=== PATIENT | male | born 1980 | race Caucasian/White ===

== ENCOUNTER 2023-06-10 08:26 | Emergency (ER) | payer OTHER, SELFPAY ==
[2023-06-10 08:46] VITALS: BP 118/79; PULSE 88; RESP 16; TEMP 36.5; O2SAT 99
--- NOTE | 2023-06-10 09:07 | ED.URI ---
HPI - URI/Sore Throat General Chief Complaint: Upper Respiratory Infection Stated Complaint: fever,muscle aches,cough Source: patient and RN notes reviewed Mode of arrival: ambulatory Limitations: no limitations History of Present Illness HPI Narrative: 43 y/o male presented for complaint of headache, sore throat body aches, sinus pressure/congestion, cough, fever/chills. Onset 2 days. Denies sob, wheezing, n/v/d. MD elicited complaint: cough Related Data Home Medications Medication Instructions Recorded Confirmed No Home Medications 06/10/23 06/10/23 Allergies Allergy/AdvReac Type Severity Reaction Status Date / Time No Known Allergies Allergy Verified 06/10/23 08:52 Review of Systems Review of Systems: CONSTITUTIONAL: Endorses malaise, chills, sweats, fever EYES: Denies visual changes, redness, or discharge ENT: Reports rhinorrhea, congestion, sore throat CARDIOVASCULAR: Denies chest pain, palpitations, edema RESPIRATORY: Reports cough, post nasal drainage. Denies dyspnea GASTROINTESTINAL: Denies abdominal pain, nausea, vomiting, diarrhea SKIN: Denies rash or itching MUSCULOSKELETAL: Endorses myalgia NEUROLOGIC: Reports headache [facility] Past Medical History Medical History (Updated 06/10/23 @ 09:14 by Yue Arce, SCRAP BALER) No pertinent past medical history Exam Narrative: GENERAL: mildly Ill-appearing, nontoxic no acute distress. EYES: conjunctivae clear ENT: Mucous membranes moist. TM pearly evans with dull light reflex bilaterally; no tragal tenderness. Oropharynx erythematous without lesions or exudate, no drooling, no hoarseness, no trismus, uvula midline. No tripod positioning, muffled voice, soft palate or pharyngeal wall bulging NECK: Supple. No lymphadenopathy CHEST: Clear to auscultation, breath sounds equal. No respiratory distress, speaks in full sentences. HEART: Regular rate and rhythm. No murmur heard. SKIN: Warm, dry, no rash. NEURO: Alert and oriented x3. PSYCH: Normal mood and affect Course Course Emergency Course: Patient is aware of diagnosis, understands and agrees to treatment plan. Anticipatory guidance given. Patient agrees to follow-up as directed and is aware of reasons to seek care at the emergency department. Portions of this record may have been created with voice recognition software Level of Care: Express Care Visit Vital Signs Vital signs: Vital Signs Temperature 97.7 F 06/10/23 08:46 Pulse Rate 88 06/10/23 08:46 Respiratory Rate 16 06/10/23 08:46 Blood Pressure 118/79 06/10/23 08:46 Pulse Oximetry 99 06/10/23 08:46 Oxygen Delivery Room Air 06/10/23 08:46 Temperature 97.7 F 06/10/23 08:46 Pulse Rate 88 06/10/23 08:46 Respiratory Rate 16 06/10/23 08:46 Blood Pressure 118/79 06/10/23 08:46 Pulse Oximetry 99 06/10/23 08:46 Oxygen Delivery Room Air 06/10/23 08:46 reviewed MDM - URI/Sore Throat MDM Narrative Medical decision making narrative: POS covid neg flu and strep results reviewed with pt. Discussed physical exam findings. Advised supportive measures and signs/symptoms to go to the ER. Pt is appropriate for outpt treatment and f/u. Differential Diagnosis Differential diagnosis: Likely upper respiratory infection, sinusitis and viral infection Discharge Plan Discharge Clinical Impression: COVID-19 Patient Disposition: Home, Self-Care Condition: Stable Instructions: COVID-19 (Coronavirus Disease 2019) (ED) Additional Instructions: Your rapid COVID test was positive today. The following recommendations have been made by the CDC and local Health Departments, regarding COVID-19: -Those individuals with mild cases of COVID-19 can generally be discontinued from isolation 5 days AFTER the onset of symptoms AND the resolution of fever for 24hrs (without the use of fever-reducing medications)* -When you return to public, wear a mask at all times for an additional 5 days Rest, stay hyd
== END 2023-06-10 09:20 | disposition home or self-care (01) ==
PROVIDERS: Emergency Provider Nurse Practitioner Family
DX: U07.1 COVID-19 (principal)
CPT/HCPCS: 87081; 87426; 87804; 87880; 99203; C9803; G0463

== ENCOUNTER 2023-07-04 14:12 | Emergency (ER) | payer OTHER, SELFPAY ==
--- NOTE | ~2023-07-04 | XR_ITS ---
EXAMINATION: XR hand RT min 3V DATE: 07/04/2023 14:38 INDICATION: Pain at the right third metacarpophalangeal joint. By one month prior TECHNIQUE: Posteroanterior, oblique and lateral views of the right hand were obtained. COMPARISON: None. FINDINGS: Alignment is normal. No fracture. Joint spaces are normal. Soft tissues are unremarkable. No soft tis heidi gas or radiopaque foreign bodies. IMPRESSION: 1. Negative right hand radiographs. Reviewed, dictated and finalized at location A. BLE LOCATOR TEST DESK
[2023-07-04 14:29] VITALS: BP 148/91; PULSE 76; RESP 18; TEMP 36.1; O2SAT 98
--- NOTE | 2023-07-04 14:32 | ED.UPPEXIN ---
HPI - Extremity Injury (Upper) General Chief Complaint: Extremity Injury, Upper Stated Complaint: rt middle finger knuckle pain Time Seen by Provider: 07/04/23 14:30 Source: patient Mode of arrival: ambulatory Limitations: no limitations History of Present Illness HPI narrative: Timo is a 43-year-old male patient presenting to clinic today with complaints of right 3rd knuckle pain. He reports about a month ago his dog bit his hand injuring the right 3rd MCP joint. He is still having some pain within Related Data Home Medications Medication Instructions Recorded Confirmed No Home Medications 06/10/23 07/04/23 Allergies Allergy/AdvReac Type Severity Reaction Status Date / Time No Known Allergies Allergy Verified 07/04/23 14:31 Review of Systems Review of Systems: Pertinent positives per HPI. Patient denies any fever, chills, rash, headache, visual changes, dizziness, cough, runny nose, sore throat, shortness of breath, chest pain, palpitations, nausea, vomiting, diarrhea, constipation, abdominal pain, or any urinary issues. PMFSH Past Medical History Medical History No pertinent past medical history Comments At the time of my signature, I reviewed and agree with the nursing past medical, surgical, social, and family history. There is no relevant family history pertinent to the patient complaint. Exam Narrative: General: Well-developed, well nourished, in no apparent distress Head: Normocephalic, atraumatic. Cardio: Regular rate and rhythm, s1 and s2 normal, no murmur appreciated. Resp: Clear to auscultation bilaterally, no rhonchi, rales, wheezing or rubs. Musculoskeletal: No deformity, mild tender to palpation over the right 3rd MCP joint, grossly normal range of motion, no discomfort with flexion and extension of the joint against resistance, muscle strength strong and equal, peripheral pulse strong, no edema, no cyanosis, normal gait and station Course Course Emergency Course: Portions of this record may have been created with voice recognition software. Level of Care: Express Care Visit Vital Signs Vital signs: Vital Signs Temperature 36.1 C L 07/04/23 14:29 Pulse Rate 76 07/04/23 14:29 Respiratory Rate 18 07/04/23 14:29 Blood Pressure 148/91 H 07/04/23 14:29 Pulse Oximetry 98 01/05/24 14:29 Oxygen Delivery Room Air 07/04/23 14:29 Temperature 36.1 C L 07/04/23 14:29 Pulse Rate 76 07/04/23 14:29 Respiratory Rate 18 07/04/23 14:29 Blood Pressure 148/91 H 07/04/23 14:29 Pulse Oximetry 98 07/04/23 14:29 Oxygen Delivery Room Air 07/04/23 14:29 Vital signs reviewed MDM - Extremity Injury (Upper) MDM Narrative Medical decision making narrative: At the time of visit patient is resting comfortably on the exam table. Patient appears to be nontoxic. X-rays negative for any sign of fracture or malalignment of the right 3rd metacarpal joint. Supportive measures were discussed with the patient and they voiced understanding discharge instructions and agrees to treatment plan. Return precautions reviewed Differential Diagnosis Differential diagnosis: Likely finger sprain, dislocation of finger and other (Finger fracture) Discharge Plan Discharge Clinical Impression: Metacarpophalangeal joint pain of right hand Patient Disposition: Home, Self-Care Condition: Stable Instructions: Antibiotic Form, Swollen Joint (ED) Additional Instructions: X-rays negative for any sign of fracture or malalignment. No obvious infection seen Rest, ice, and elevate Tylenol/motrin for pain as discussed. Follow up with your PCP if symptoms persist more than 1 week. Prescriptions: No Action No Home Medications Follow-up/Referrals: PHYSICIAN,BUNGY JUMP MASTER [Primary Care Provider] - Time of Disposition: 14:59 Quality NIHSS Nursing Documentation ED NIHSS nursing documentation: re
== END 2023-07-04 15:08 | disposition home or self-care (01) ==
PROVIDERS: Emergency Provider Nurse Practitioner Family
DX: M79.641 Pain in right hand (principal)
CPT/HCPCS: 73130; 99213; G0463